=== PATIENT | female | born 1990 | race American Indian/Alaskan Native ===

== ENCOUNTER 2020-06-19 17:12 | Emergency (ER) | payer SELFPAY ==
[2020-06-19 18:47] VITALS: BP 102/55
[2020-06-19] MEDS ORDERED: ACETAMINOPHEN 325 MG TAB PO ONE (19:17)
--- NOTE | 2020-06-19 19:23 | Emergency Department Report ---
ED General Adult HPI - General Chief complaint: Vaginal Bleeding Stated complaint: POSSIBLE MISCARRIAGE Time Seen by Provider: 06/19/20 19:16 Source: patient Mode of arrival: Ambulatory Limitations: No Limitations - History of Present Illness Initial comments: pt is a 29-year-old female presents emergency room complaints of one episode of vaginal bleeding that occurred today. She states that yesterday she took a positive test [id number]. She states her last menstrual cycle was 05/12/2020. She states that she has been having some lower abdominal cramping and lower back pain. She states that the bleeding has stopped. She denies any fever, nausea, vomiting, diarrhea, urinary symptoms, dysuria, abnormal vaginal discharge. Has a past medical history of asthma. No allergies to medications. /P: 3/A: 1 - Related Data Allergies Allergy/AdvReac Type Severity Reaction Status Date / Time No Known Allergies Allergy Unverified 06/19/20 18:34 ED Review of Systems ROS: Stated complaint: POSSIBLE MISCARRIAGE Other details as noted in HPI Comment: All other systems reviewed and negative ED Past Medical Hx - Past Medical History Hx Asthma: Yes - Surgical History Past Surgical History?: No - Social History Smoking Status: Never Smoker Substance Use Type: None ED Physical Exam - General Limitations: No Limitations General appearance: alert, in no apparent distress - Head Head exam: Present: atraumatic, normocephalic - Eye Eye exam: Present: normal appearance - ENT ENT exam: Present: mucous membranes moist - Respiratory Respiratory exam: Present: normal lung sounds bilaterally. Absent: respiratory distress, wheezes, rales, rhonchi, stridor, chest wall tenderness, accessory muscle use, decreased breath sounds, prolonged expiratory - Cardiovascular Cardiovascular Exam: Present: regular rate, normal rhythm, normal heart sounds. Absent: systolic murmur, diastolic murmur, rubs, gallop - GI/Abdominal GI/Abdominal exam: Present: soft, normal bowel sounds. Absent: distended, tenderness, rebound, rigid - Neurological Exam Neurological exam: Present: alert, oriented X3 - Psychiatric Psychiatric exam: Present: normal affect, normal mood - Skin Skin exam: Present: warm, dry, intact ED Course Vital Signs 06/19/20 18:37 Temperature 99.2 F Pulse Rate 58 L Respiratory 20 Rate Blood Pressure 102/55 O2 Sat by Pulse 100 Oximetry ED Medical Decision Making - Lab Data Result diagrams: 06/19/20 19:20 06/19/20 19:20 Lab Results 06/19/20 06/19/20 06/19/20 Range/Units 19:20 19:20 19:20 WBC 7.8 (4.5-11.0) K/mm3 RBC 3.79 (3.65-5.03) M/mm3 Hgb 12.6 (10.1-14.3) gm/dl Hct 38.0 (30.3-42.9) % MCV 100 H (79-97) fl MCH 33 H (28-32) pg MCHC 33 (30-34) % RDW 12.5 L (13.2-15.2) % Plt Count 160 (140-440) K/mm3 Lymph % (Auto) 33.5 (13.4-35.0) % [place] % (Auto) 6.3 (0.0-7.3) % Eos % (Auto) 3.0 (0.0-4.3) % Baso % (Auto) 0.6 (0.0-1.8) % Lymph # (Auto) 2.6 (1.2-5.4) K/mm3 [place] # (Auto) 0.5 (0.0-0.8) K/mm3 Eos # (Auto) 0.2 (0.0-0.4) K/mm3 Baso # (Auto) 0.0 (0.0-0.1) K/mm3 Seg Neutrophils % 56.6 (40.0-70.0) % Seg Neutrophils # 4.4 (1.8-7.7) K/mm3 Sodium 137 (137-145) mmol/L Potassium 3.8 (3.6-5.0) mmol/L Chloride 102.3 (98-107) mmol/L Carbon Dioxide 25 (22-30) mmol/L Anion Gap 14 mmol/L BUN 10 (7-17) mg/dL Creatinine 0.7 (0.6-1.2) mg/dL Estimated GFR > 60 ml/min BUN/Creatinine Ratio 14 % Glucose 90 (65-100) mg/dL Calcium 8.7 (8.4-10.2) mg/dL Total Bilirubin 0.40 (0.1-1.2) mg/dL AST 15 (5-40) units/L ALT 10 (7-56) units/L Alkaline Phosphatase 52 (35-129) units/L Total Protein 6.9 (6.3-8.2) g/dL Albumin 4.4 (3.9-5) g/dL Albumin/Globulin Ratio 1.8 % HCG, Quant 1442 H (0-4) mIU/mL Urine Color (Yellow) Urine Turbidity (Clear) Urine pH (5.0-7.0) Ur Specific [place] (1.003-1.030) Urine Protein (Negative) mg/dL Urine Glucose (UA) (Negative) mg/dL Urine Ketones (Negative) mg/dL Urine Blood (Negative) Urine Nitrite (Negative) Urine Bilirubin (Negative) Urine Urobilinogen (<2.0) mg/dL Ur Leukocyte Esterase (Negative) Urine WBC (Auto) (0.0-6.0) /HPF Urine RBC (Auto) (0.0-6.0) /HPF U Epithel Cells (Auto) (0-13.0) /HPF Urine Mucus /HPF Blood Type 06/19/20 06/19/20 Range/Units 19:20 19:25 WBC (4.5-11.0) K/mm3 RBC (3.65-5.03) M/mm3 Hgb (10.1-14.3) gm/dl Hct (30.3-42.9) % MCV (79-97) fl MCH (28-32) pg MCHC (30-34) % RDW (13.2-15.2) % Plt Count (140-440) K/mm3 Lymph % (Auto) (13.4-35.0) % [place] % (Auto) (0.0-7.3) % Eos % (Auto) (0.0-4.3) % Baso % (Auto) (0.0-1.8) % Lymph # (Auto) (1.2-5.4) K/mm3 [place] # (Auto) (0.0-0.8) K/mm3 Eos # (Auto) (0.0-0.4) K/mm3 Baso # (Auto) (0.0-0.1) K/mm3 Seg Neutrophils % (40.0-70.0) % Seg Neutrophils # (1.8-7.7) K/mm3 Sodium (137-145) mmol/L Potassium (3.6-5.0) mmol/L Chloride (98-107) mmol/L Carbon Dioxide (22-30) mmol/L Anion Gap mmol/L BUN (7-17) mg/dL Creatinine (0.6-1.2) mg/dL Estimated GFR ml/min BUN/Creatinine Ratio % Glucose (65-100) mg/dL Calcium (8.4-10.2) mg/dL Total Bilirubin (0.1-1.2) mg/dL AST (5-40) units/L ALT (7-56) units/L Alkaline Phosphatase (35-129) units/L Total Protein (6.3-8.2) g/dL Albumin (3.9-5) g/dL Albumin/Globulin Ratio % HCG, Quant (0-4) mIU/mL Urine Color Yellow (Yellow) Urine Turbidity Clear (Clear) Urine pH 5.0 (5.0-7.0) Ur Specific [place] 1.028 (1.003-1.030) Urine Protein <15 mg/dl (Negative) mg/dL Urine Glucose (UA) Neg (Negative) mg/dL Urine Ketones Neg (Negative) mg/dL Urine Blood Sm (Negative) Urine Nitrite Neg (Negative) Urine Bilirubin Neg (Negative) Urine Urobilinogen < 2.0 (<2.0) mg/dL Ur Leukocyte Esterase Neg (Negative) Urine WBC (Auto) < 1.0 (0.0-6.0) /HPF Urine RBC (Auto) 2.0 (0.0-6.0) /HPF U Epithel Cells (Auto) 4.0 (0-13.0) /HPF Urine Mucus 3+ /HPF Blood Type O POSITIVE - Radiology Data Radiology results: report reviewed Ordering Physician: GUILLERMO BRAMBILA Date of Service: 06/19/20 Procedure(s): US OB <= 14 weeks fetus Accession Number(s): [id number] cc: GUILLERMO BRAMBILA US OB <= 14 weeks fetus INDICATION / CLINICAL INFORMATION: , bleeding, cramping. COMPARISON: None available. FINDINGS: Gestational sac and pole are demonstrated within the uterus. [place]-rump length measures 11.7 mm, corresponding to a gestational age of 7 weeks 2 days. However, no heartbeat can be identified. Left ovary is normal. 1.4 cm cyst in the right ovary. Color Doppler shows normal vascular flow in both ovaries. No free fluid. By the end of the exam, gestational sac and become much more flattened, and the pole was less well defined. IMPRESSION: 1. Findings are consistent with demise. Signer Name: Juan A Garrison MD Signed: 06/19/2020 10:32 PM Workstation Name: [id number] Transcribed By: TM Dictated By: Juan A Garrison MD Electronically Authenticated By: Juan A Garrison MD Signed Date/Time: 06/19/202231 DD/ 27 TD/TT: Print - Medical Decision Making pt is a 29-year-old female presents emergency room complaints of one episode of vaginal bleeding that occurred today. She states that yesterday she took a positive test [id number]. She states her last menstrual cycle was 05/12/2020. She states that she has been having some lower abdominal cramping and lower back pain. She states that the bleeding has stopped. She denies any fever, nausea, vomiting, diarrhea, urinary symptoms, dysuria, abnormal vaginal discharge. Has a past medical history of asthma. No allergies to medications. /P: 3/A: 1. Vitals are normal. No abdominal tenderness on exam, no guarding, no rebound, no rigidity, no bowel sounds, no peritoneal signs. Labs are normal. hCG quant is 1442. Patient is O+ blood type. UA without evidence of UTI or red blood cells. Patient signed out to Ian Elizabeth NP awaiting ultrasound results and disposition Critical care attestation.: If time is entered above; I have spent that time in minutes in the direct care o f this critically ill patient, excluding procedure time. ED Disposition Clinical Impression: Vaginal bleeding, Abdominal cramping, demise Disposition: Z-07 ELOPED Is pt being admited?: No Does the pt Need Aspirin: No Condition: Undetermined Referrals: PRIMARY CARE, [Primary Care Provider] - DONNY Print Language: THAI
[2020-06-19 19:40] LABS: Bilirubin,Urine NEG (Negative); Blood,Urine SM (Negative); Color,Urine Yellow (Yellow); Mucus,Urine 3+ /HPF; Protein,Urine <15 mg/dL mg/dL (Negative); Urobilinogen,Urine < 2.0 mg/dL (<2.0); WBC,Urine < 1.0 /HPF (0.0-6.0)
[2020-06-19 19:52] LABS: Alanine Aminotransferase 10 units/L (7-56); Albumin 4.4 g/dL (3.9-5); Blood Urea Nitrogen 10 mg/dL (7-17); Calcium 8.7 mg/dL (8.4-10.2); Hemolysis Index 7
[2020-06-19 19:55] LABS: BUN/Creatinine Ratio 14
[2020-06-19 20:00] LABS: Basophils % (Auto) 0.6 % (0.0-1.8); Eosinophils # (Auto) 0.2 K/mm3 (0.0-0.4); Hemoglobin 12.6 gm/dl (10.1-14.3); Lymphocytes # (Auto) 2.6 K/mm3 (1.2-5.4); Lymphocytes % (Auto) 33.5 % (13.4-35.0); Mean Corpuscular HGB Conc 33 % (30-34); Mean Corpuscular Volume 100 fl (79-97); Monocytes # (Auto) 0.5 K/mm3 (0.0-0.8); Monocytes % (Auto) 6.3 % (0.0-7.3); Platelet Count 160 K/mm3 (140-440); Red Blood Count 3.79 M/mm3 (3.65-5.03); Red Cell Distribution Width 12.5 % (13.2-15.2)
--- NOTE | 2020-06-19 22:37 | Ultrasound Report ---
US OB <= 14 weeks fetus INDICATION / CLINICAL INFORMATION: , bleeding, cramping. COMPARISON: None available. FINDINGS: Gestational sac and pole are demonstrated within the uterus. [place]-rump length measures 11.7 mm , corresponding to a gestational age of 7 weeks 2 days. However, no heartbeat can be identified . Left ovary is normal. 1.4 cm cyst in the right ovary. Color Doppler shows normal vascular flow in bot h ovaries. No free fluid. By the end of the exam, gestational sac and become much more flattened, and the pole was less w ell defined. IMPRESSION: 1. Findings are consistent with demise. Signer Name: Juan A Garrison MD Signed: 06/19/2020 10:32 PM Workstation Name: [id number]
== END 2020-06-19 23:55 | disposition left against medical advice (07) ==
LOC: ED 17:12
DX: O20.8 Other hemorrhage in early pregnancy (principal); O36.4XX0 Maternal care for intrauterine death, not applicable or unspecified; O99.511 Diseases of the respiratory system complicating pregnancy, first trimester; O26.891 Other specified pregnancy related conditions, first trimester; R10.9 Unspecified abdominal pain; Z3A.01 Less than 8 weeks gestation of pregnancy; Z79.899 Other long term (current) drug therapy
CPT/HCPCS: 36415; 76801; 80053; 81001; 84702; 85025; 86900; 86901